=== PATIENT | female | born 2000 | race Caucasian/White ===

== ENCOUNTER 2021-05-02 20:57 | Emergency (ER) | payer OTHER ==
[2021-05-02 21:04] VITALS: TEMP 98.6
[2021-05-02] MEDS ORDERED: LIDOCAINE 1% INJ 10MG/ML (20 ML MDV) SQ ONE (21:27)
--- NOTE | 2021-05-02 21:41 | ED ---
Skin/Abscess/FB HPI - General Chief complaint: Skin/Abscess/Foreign Body Stated complaint: Sore on back Time Seen by Provider: 05/02/21 21:06 Source: patient, family Mode of arrival: ambulatory Limitations: no limitations - History of Present Illness Initial comments: This patient is a 20-year-old woman who presents to be evaluated for which she suspects is a pilonidal cyst. Patient states that she had started to notice a tender area and increasing swelling going back approximate 45 days now. The patient states she had gone to [place] and was seen there and was prescribed Bactrim. She also stated that "they tried to poke it". That was on Thursday but she has not noticed any improvement yet. The patient has not had any systemic symptoms, no fever or chills, palpitations, chest pain or other symptoms. MD complaint: abscess/boil Onset/Timin -: days(s) Tetanus Up to Date: yes Location: buttocks Severity: moderate Quality: sharp Consistency: constant Improves with: none Worsens with: other (Sitting) Context: none Associated symptoms: denies other symptoms - Related Data Home Medications Medication Instructions Recorded Confirmed Ferrous Sulfate [Feosol] 325 mg PO Q48H 05/02/21 05/02/21 Ibuprofen [Motrin Ib] 800 mg PO Q8H PRN 05/02/21 05/02/21 Lessina 28 1 tab PO DAILY 05/02/21 05/02/21 Sulfamethox-Tmp 800-160Mg [Bactrim 1 tab PO Q12HR 05/02/21 05/02/21 DS 800-160 mg] metFORMIN HCL [Glucophage] 1,000 mg PO BID 05/02/21 05/02/21 sitaGLIPtin PHOSPHATE [Januvia] 100 mg PO DAILY 05/02/21 05/02/21 Previous Rx's Medication Instructions Recorded traMADol HCl [Ultram] 50 mg PO Q6H PRN #20 tab 05/02/21 Allergies Allergy/AdvReac Type Severity Reaction Status Date / Time amoxicillin Allergy Rash/Hives Verified 05/02/21 21:04 Fish Containing Products Allergy Verified 05/02/21 21:22 [Fish] Review of Systems ROS Statement: Those systems with pertinent positive or pertinent negative responses have been documented in the HPI. ROS Other: All systems not noted in ROS Statement are negative. Constitutional: Denies: fever, chills Cardiovascular: Denies: chest pain, palpitations Skin: Reports: as per HPI, other (Cyst) Hematological/Lymphatic: Denies: easy bleeding Past Medical History Past Medical History: Diabetes Mellitus Additional Past Medical History / Comment(s): PCOS History of Any Multi-Drug Resistant Organisms: MRSA Date of last positivie culture/infection: abdomen MDRO Source:: 2020 Past Surgical History: Appendectomy, Tonsillectomy Additional Past Surgical History / Comment(s): left ovary removed Past Psychological History: No Psychological Hx Reported Smoking Status: Never smoker Past Alcohol Use History: None Reported Past Drug Use History: None Reported General Exam Limitations: no limitations General appearance: alert, in no apparent distress Neurological exam: Present: alert Skin exam: Present: warm, dry, intact, erythema, other (There is an approximately 6 cm roughly circular area of erythema and warmth with induration overlying what appears to be abscess consistent with pilonidal cyst.). Absent: rash Course Vital Signs 05/02/21 05/02/21 20:59 22:03 Temperature 98.6 F Pulse Rate 94 77 Respiratory 22 18 Rate Blood Pressure 123/82 128/78 O2 Sat by Pulse 98 96 Oximetry - Reevaluation(s) Reevaluation #1: 05/02/21 22:25 I had recommended to have incision and drainage of the abscess, but the patient is declining here. Medical Decision Making - Medical Decision Making I discussed that the usual ER management of this condition and is to have incision and drainage. The patient states that she had a friend who had that done and there was recurrence of required surgical management. She states that she would like to skip the ER drainage and see a surgeon. I did provide surgery follow-up information. The patient requests to have additional pain medicine as the Tylenol she was taking was not helping. I provided small prescription of this. She is to continue the Bactrim. She will follow with the surgeon I discussed return parameters. Disposition Clinical Impression: Pilonidal cyst with abscess Disposition: HOME SELF-CARE Condition: Good Instructions (If sedation given, give patient instructions): Pilonidal Cyst (ED) Prescriptions: traMADol HCl [Ultram] 50 mg PO Q6H PRN #20 tab PRN Reason: Pain Is patient prescribed a controlled substance at d/c from ED?: Yes When asked, does pt state using other controlled substances?: No If prescribed controlled substance>3 days was MAPS reviewed?: Prescribed <3 Days If opioid is for acute pain is fill amount 7 days or less?: Yes If Rx opioid, was Start Talking consent form obtained?: Yes Referrals: Nonstaff,Physician [Primary Care Provider] - 1-2 days Cornell Casey MD [STAFF PHYSICIAN] - 1-2 days
[2021-05-02 22:06] VITALS: BP 128/78; PULSE 77; RESP 18
== END 2021-05-02 22:39 | disposition home or self-care (01) ==
LOC: EC 20:57
DX: L05.01 Pilonidal cyst with abscess (principal); E11.9 Type 2 diabetes mellitus without complications; Z79.84 Long term (current) use of oral hypoglycemic drugs; Z79.1 Long term (current) use of non-steroidal anti-inflammatories (NSAID); Z79.899 Other long term (current) drug therapy
CPT/HCPCS: 99283; J2001

== ENCOUNTER 2021-05-17 07:02 | Day surgery (SDC) | payer OTHER ==
[2021-05-16 08:34] VITALS: BMI 40.1
[~2021-05-17 07:02] MED LIST: ACETAMINOPHEN TAB 500 MG TAB PO PRN; DEXAMETHASONE SOD PHOSPHATE 4 MG/ML 1 ML VIAL IV ONE; HEPARIN SODIUM,PORCINE/PF 5,000 UNIT/0.5 ML SYRINGE SQ PRN; HYDROmorphone 0.5 MG/0.5 ML SYRINGE IVP PRN; MIDAZOLAM 2 MG/2 ML VIAL IV PRN; ONDANSETRON 4 MG/2 ML VIAL IVP ONE; SCOPOLAMINE 1.5MG/72HR PATCH TRANSDERM ONE; ceFAZolin 3 GM in SODIUM CHLORIDE 0.9% 100 ML IVPB PRN; metroNIDAZOLE-NS PMX 500 MG in SALINE 1 100ML.BAG IVPB PRN
[2021-05-17 07:49] LABS: Glucose,Whole Blood 277 mg/dL (75-99)
[2021-05-17] MEDS: LACTATED RINGERS 1,000 ML IV SCH ×2 (07:50→09:24)
[2021-05-17] MEDS ORDERED: INSULIN ASPART (NovoLOG) 100 UNIT/ML VIAL SQ ONE ×2 (07:50→11:43)
[2021-05-17 07:59] VITALS: TEMP 97
[2021-05-17] MEDS ORDERED: .fentaNYL (PF) 50 MCG/ML 2 ML AMP ONE (09:23)
[2021-05-17] MEDS ORDERED: KETOROLAC 15 MG/ML 1 ML VIAL ONE (09:23)
[2021-05-17] MEDS ORDERED: SUCCINYLCHOLINE CHLORIDE VIAL 200 MG/10 ML VIAL IV ONE (09:23)
[2021-05-17] MEDS ORDERED: LIDOCAINE 1% INJ 10MG/ML (20 ML MDV) ONE (09:23)
[2021-05-17] MEDS ORDERED: PROPOFOL 10 MG/ML 20 ML VIAL IV ONE (09:23)
[2021-05-17] MEDS ORDERED: HYDROmorphone (PF) 1 MG/ML ONE (09:23)
[2021-05-17] MEDS ORDERED: MIDAZOLAM 2 MG/2 ML VIAL ONE (09:23)
[2021-05-17] MEDS ORDERED: LACTATED RINGERS 1,000 ML IV ONE (09:45)
[2021-05-17] MEDS ORDERED: BUPIVACAIN-EPI 0.25%-1:200,000 30 ML VIAL SQ ONE (10:07)
--- NOTE | 2021-05-17 10:29 | P.GSHP ---
History of Present Illness H&P Date: 05/17/21 Chief Complaint: Pilonidal cyst This is a 18-year-old female who's had issues with a pilonidal cyst. Patient presents today for excision. Patient is aware of the need for local wound care postoperatively. Past Medical History Past Medical History: Diabetes Mellitus Additional Past Medical History / Comment(s): PCOS. History of Any Multi-Drug Resistant Organisms: MRSA Date of last positivie culture/infection: right arm MDRO Source:: 03/2021 Past Surgical History: Appendectomy, Tonsillectomy Additional Past Surgical History / Comment(s): Left ovary removed. Past Anesthesia/Blood Transfusion Reactions: No Reported Reaction Past Psychological History: No Psychological Hx Reported Smoking Status: Never smoker Past Alcohol Use History: None Reported Past Drug Use History: None Reported - Past Family History Father Family Medical History: No Reported History Medications and Allergies Home Medications Medication Instructions Recorded Confirmed Type Ferrous Sulfate [Feosol] 325 mg PO Q48H 05/02/21 05/16/21 History Sulfamethox-Tmp 800-160Mg [Bactrim 1 tab PO Q12HR 05/02/21 05/16/21 History DS 800-160 mg] metFORMIN HCL [Glucophage] 1,000 mg PO BID 05/02/21 05/16/21 History sitaGLIPtin PHOSPHATE [Januvia] 100 mg PO DAILY 05/02/21 05/16/21 History Allergies Allergy/AdvReac Type Severity Reaction Status Date / Time amoxicillin Allergy Rash/Hives Verified 05/16/21 08:19 Fish Containing Products Allergy Anaphylaxis Verified 05/16/21 08:19 [Fish] Surgical - Exam Vital Signs Temp Pulse Resp BP Pulse Ox 97 F L 80 20 136/72 98 05/17/21 07:57 05/17/21 07:57 05/17/21 07:57 05/17/21 07:57 05/17/21 07:57 - General well developed, well nourished, no distress - Eyes PERRL - ENT normal pinna - Neck no masses - Respiratory normal expansion - Cardiovascular Rhythm: regular - Abdomen Abdomen: soft, non tender - Integumentary Chronic pilonidal cyst Results - Labs Abnormal Lab Results - Last 24 Hours (Table) 05/17/21 Range/Units 07:42 POC Glucose (mg/dL) 277 H (75-99) mg/dL Assessment and Plan Assessment: Chronic pilonidal cyst. We'll perform excision. The patient will have the wound packed postoperative period
--- NOTE | 2021-05-17 10:31 | P.OP ---
Date of Procedure: 05/17/21 Preoperative Diagnosis: Pilonidal cyst Postoperative Diagnosis: Pilonidal cyst Procedure(s) Performed: Excision of pilonidal cyst Anesthesia: GIGI Surgeon: Cornell Casey Estimated Blood Loss (ml): 5 Pathology: other (Pilonidal cyst) Condition: stable Disposition: PACU Description of Procedure: The patient's placed on the operative table in the prone position. She received general endotracheal tube anesthesia. Her buttock was prepped and draped in sterile fashion. Patient upon O cyst located just above her anus. Local skin incision was made. Using electrocautery the prognosis was excised. The Bovie hemostasis. The wound was packed with dry Kerlix. Patient top she will was sent to recovery room in stable condition.
[2021-05-17 10:57] VITALS: RESP 16
[2021-05-17 11:25] LABS: Glucose,Whole Blood 369 mg/dL (75-99)
[2021-05-17 11:45] VITALS: BP 123/72; PULSE 73
[2021-05-17 12:03] LABS: Glucose,Whole Blood 349 mg/dL (75-99)
== END 2021-05-17 12:28 | disposition home health service (06) ==
LOC: OR 07:02
PROVIDERS: ATTEND Surgery
DX: L05.01 Pilonidal cyst with abscess (principal); E11.9 Type 2 diabetes mellitus without complications; E28.2 Polycystic ovarian syndrome; Z88.2 Allergy status to sulfonamides; Z79.899 Other long term (current) drug therapy; Z79.84 Long term (current) use of oral hypoglycemic drugs; E66.9 Obesity, unspecified
CPT/HCPCS: 81025; 88304; 11770; J2250; J0330; J1100; J0690; J2405; J2001; J3010; J1170; J1885; J2704; J1644

== ENCOUNTER 2021-07-04 20:06 | Emergency (ER) | payer OTHER ==
[2021-07-04 20:35] VITALS: TEMP 98.1
[2021-07-04] MEDS ORDERED: LIDOCAINE 1% INJ 10MG/ML (20 ML MDV) SQ ONE (21:12)
[2021-07-04 21:30] LABS: Glucose,Whole Blood 251 mg/dL (75-99)
[2021-07-04] MEDS ORDERED: Acetaminophen-Codeine 300-30mg TAB PO STA (21:31)
--- NOTE | 2021-07-04 21:31 | ED ---
Skin/Abscess/FB HPI - General Chief complaint: Skin/Abscess/Foreign Body Stated complaint: Bump on R hip Time Seen by Provider: 07/04/21 20:49 Source: patient Mode of arrival: ambulatory Limitations: no limitations - History of Present Illness Initial comments: This 20-year-old female with a past medical history diabetes Type 2 and hidradenitis presents to the emergency Department with an abscess on her right side. Patient states on the right side of her mid abdomen/side abdomen 5 days ago she noticed a red klamath the size of 2 quarters with a pinpoint white dot in the center of it. She states 3 days ago it started draining clear/red liquid. Patient states she has had a MRSA infection in her past. Patient states she is here to see if she needs any antibiotics. Patient denies any fever, chills, shortness of breath, abdominal pain, headache, change in vision, nausea, vomiting. - Related Data Home Medications Medication Instructions Recorded Confirmed Ferrous Sulfate [Feosol] 325 mg PO Q48H 05/02/21 05/16/21 metFORMIN HCL [Glucophage] 1,000 mg PO BID 05/02/21 05/16/21 sitaGLIPtin PHOSPHATE [Januvia] 100 mg PO DAILY 05/02/21 05/16/21 Previous Rx's Medication Instructions Recorded Acetaminophen Tab [Tylenol] 650 mg PO Q6H #30 tab 05/17/21 Docusate [Colace] 100 mg PO BID #20 capsule 05/17/21 Ibuprofen [Motrin] 600 mg PO Q6HR PRN #40 tab 05/17/21 oxyCODONE HCL [OxyIR] 5 mg PO Q6H PRN 3 Days #10 tab 05/17/21 Cephalexin [Keflex] 500 mg PO Q6HR #20 cap 07/04/21 Sulfamethox-Tmp 800-160Mg [Bactrim 1 tab PO Q12HR 5 Days #10 tab 07/04/21 DS 800-160 mg] Allergies Allergy/AdvReac Type Severity Reaction Status Date / Time amoxicillin Allergy Rash/Hives Verified 07/04/21 20:35 Fish Containing Products Allergy Anaphylaxis Verified 07/04/21 20:35 [Fish] Review of Systems ROS Statement: Those systems with pertinent positive or pertinent negative responses have been documented in the HPI. ROS Other: All systems not noted in ROS Statement are negative. Past Medical History Past Medical History: Diabetes Mellitus Additional Past Medical History / Comment(s): PCOS. History of Any Multi-Drug Resistant Organisms: MRSA Date of last positivie culture/infection: right arm MDRO Source:: 03/2021 Past Surgical History: Appendectomy, Tonsillectomy Additional Past Surgical History / Comment(s): Left ovary removed. cyst removed,pilonidal cyst Past Anesthesia/Blood Transfusion Reactions: No Reported Reaction Past Psychological History: Anxiety, Depression Smoking Status: Never smoker Past Alcohol Use History: None Reported Past Drug Use History: None Reported - Past Family History Father Family Medical History: No Reported History General Exam Limitations: no limitations General appearance: alert, in no apparent distress Head exam: Present: atraumatic, normocephalic Eye exam: Present: normal appearance, PERRL, EOMI. Absent: scleral icterus, conjunctival injection, periorbital swelling ENT exam: Present: normal exam, mucous membranes moist Neck exam: Present: normal inspection. Absent: tenderness, meningismus, lymphadenopathy Respiratory exam: Present: normal lung sounds bilaterally. Absent: respiratory distress, wheezes, rales, rhonchi, stridor Cardiovascular Exam: Present: regular rate, normal rhythm, normal heart sounds. Absent: systolic murmur, diastolic murmur, rubs, gallop, clicks GI/Abdominal exam: Present: soft, normal bowel sounds. Absent: distended, tenderness, guarding, rebound, rigid Extremities exam: Present: normal inspection, full ROM, normal capillary refill. Absent: tenderness, pedal edema, joint swelling, calf tenderness Back exam: Present: normal inspection Neurological exam: Present: alert, oriented X3, CN II-XII intact Psychiatric exam: Present: normal affect, normal mood Skin exam: Present: warm, dry, other (6cm width x 4cm length erythematous, fluctuant abscess present. Draining fluid out of small center hole. Clear/pus/blood oozing from abscess. She states she is having some pain does not spirits any fever) Course Vital Signs 07/04/21 07/04/21 20:32 22:32 Temperature 98.1 F 98.1 F Pulse Rate 88 92 Respiratory 20 18 Rate Blood Pressure 115/77 124/78 O2 Sat by Pulse 100 100 Oximetry Procedures - Incision & Drainage Consent Obtained: verbal consent Site: abdomen (Right side in line with armpit) Anesthetic Used: lidocaine 1% I&D Cleaning Method: Betadine Scalpel Used: #11 Needle Aspiration Performed?: No Irrigation Performed?: Yes I&D Drainage Obtained: Pus, Blood Packing: Iodoform Culture Obtained?: Yes Patient Tolerated Procedure: well, no complications Medical Decision Making - Medical Decision Making This 20-year-old female presents to the emergency department with an abscess on her right side. Pain medication was given which alleviated her pain. Wound culture obtained and is pending. Around abscess was injected with lidocaine before using scalpel to open middle of abscess. Abscess was drained and packed. Pain medication and antibiotics were given. Patient to follow up with her peters rgeon, Dr. Casey in next 48-72 hours for packing removal and for wound to be reassessed. Strict return precautions given. Patient verbally agreed to plan. Patient sent home in stable condition. Case discussed with my attending, . - Lab Data Lab Results 07/04/21 Range/Units 21:25 POC Glucose (mg/dL) 251 H (75-99) mg/dL POC Glu Business Coordinator ID Claudia Davila Disposition Clinical Impression: Abscess Disposition: HOME SELF-CARE Condition: Stable Instructions (If sedation given, give patient instructions): Abscess (ED), Abscess Incision and Drainage (DC) Additional Instructions: Physical turn to the emergency department with any concerning, new or worsening symptoms. Please follow-up with Carmela next 24-48 hours. Can return here or to Dr. Casey for packing removal in 3 days. Prescriptions: Sulfamethox-Tmp 800-160Mg [Bactrim DS 800-160 mg] 1 tab PO Q12HR 5 Days #10 tab Cephalexin [Keflex] 500 mg PO Q6HR #20 cap Is patient prescribed a controlled substance at d/c from ED?: No Referrals: Nonstaff,Physician [Primary Care Provider] - 1-2 days Cornell Casey MD [STAFF PHYSICIAN] - 1-2 days Time of Disposition: 22:23
[2021-07-04] MEDS ORDERED: HYDROcodone/APAP 5-325MG 1 EACH TAB PO STA (21:33)
[2021-07-04] MEDS ORDERED: SULFAMETHOX-TMP 800-160MG 1 EACH TAB PO STA (22:08)
[2021-07-04] MEDS ORDERED: ACET/COD 300 MG/30 MG STARTER PACK 6 TAB BTL PO STA (22:23)
[2021-07-04 22:33] VITALS: BP 124/78; PULSE 92; RESP 18
== END 2021-07-04 22:33 | disposition home or self-care (01) ==
LOC: EC 20:06
DX: L02.211 Cutaneous abscess of abdominal wall (principal); E11.9 Type 2 diabetes mellitus without complications; F41.9 Anxiety disorder, unspecified; F32.A Depression, unspecified; Z79.84 Long term (current) use of oral hypoglycemic drugs; Z88.0 Allergy status to penicillin; Z90.49 Acquired absence of other specified parts of digestive tract
CPT/HCPCS: 99283; 10060; 36415; 87070; 87205; 87077; 87186; J2001

== ENCOUNTER 2022-06-07 12:44 | Emergency (ER) | payer OTHER ==
[2022-06-07 13:37] VITALS: RESP 18
--- NOTE | 2022-06-07 13:47 | ED ---
URI HPI - General Chief Complaint: Upper Respiratory Infection Stated Complaint: sore throat, congestion, fever Time Seen by Provider: 06/07/22 13:09 Source: patient Mode of arrival: ambulatory Limitations: no limitations - History of Present Illness Initial Comments: Patient is a 21-year-old female presenting to the emergency room from home with complaints of sore throat ongoing for approximately 3 days along with the development of cough and congestion in the last 24 hours. She also reports a fever this morning of 102 which she treated with Tylenol with good response. She reports some generalized malaise and known exposure to influenza. She has not had influenza vaccine but is COVID vaccinated. She denies any known exposure to COVID or RSV. She denies any chest pain, shortness of breath not directly associated with her cough, abdominal pain, nausea, vomiting, altered mental status or chills. She has a past medical history significant for diabetes and PCOS. - Related Data Home Medications Medication Instructions Recorded Confirmed Ferrous Sulfate [Feosol] 325 mg PO Q48H 05/02/21 05/16/21 metFORMIN HCL [Glucophage] 1,000 mg PO BID 05/02/21 05/16/21 sitaGLIPtin PHOSPHATE [Januvia] 100 mg PO DAILY 05/02/21 05/16/21 Previous Rx's Medication Instructions Recorded Acetaminophen Tab [Tylenol] 650 mg PO Q6H #30 tab 05/17/21 Docusate [Colace] 100 mg PO BID #20 capsule 05/17/21 Ibuprofen [Motrin] 600 mg PO Q6HR PRN #40 tab 05/17/21 oxyCODONE HCL [OxyIR] 5 mg PO Q6H PRN 3 Days #10 tab 05/17/21 Cephalexin [Keflex] 500 mg PO Q6HR #20 cap 07/04/21 Sulfamethox-Tmp 800-160Mg [Bactrim 1 tab PO Q12HR 5 Days #10 tab 07/04/21 DS 800-160 mg] Oseltamivir [Tamiflu] 75 mg PO Q12HR 5 Days #10 cap 06/07/22 Allergies Allergy/AdvReac Type Severity Reaction Status Date / Time amoxicillin Allergy Rash/Hives Verified 06/07/22 13:16 Fish Containing Products Allergy Anaphylaxis Verified 06/07/22 13:16 [Fish] Review of Systems ROS Statement: Those systems with pertinent positive or pertinent negative responses have been documented in the HPI. ROS Other: All systems not noted in ROS Statement are negative. Past Medical History Past Medical History: Diabetes Mellitus Additional Past Medical History / Comment(s): PCOS. History of Any Multi-Drug Resistant Organisms: MRSA Date of last positivie culture/infection: 07/04/21 MDRO Source:: Abdomen Past Surgical History: Appendectomy, Tonsillectomy Additional Past Surgical History / Comment(s): Left ovary removed. cyst removed,pilonidal cyst Past Anesthesia/Blood Transfusion Reactions: No Reported Reaction Past Psychological History: Anxiety, Depression Smoking Status: Never smoker Past Alcohol Use History: None Reported Past Drug Use History: None Reported - Past Family History Father Family Medical History: No Reported History General Exam Limitations: no limitations General appearance: alert, in no apparent distress Head exam: Present: atraumatic, normocephalic, normal inspection Eye exam: Present: normal appearance, PERRL, EOMI. Absent: scleral icterus, conjunctival injection, periorbital swelling ENT exam: Present: mucous membranes moist, other (Mild pharyngeal injection without edema. Tonsils absent. No exudate.) Neck exam: Present: normal inspection, lymphadenopathy (Shotty) Respiratory exam: Present: normal lung sounds bilaterally. Absent: respiratory distress, wheezes, rales, rhonchi, stridor Cardiovascular Exam: Present: regular rate, normal rhythm, normal heart sounds. Absent: systolic murmur, diastolic murmur, rubs, gallop, clicks GI/Abdominal exam: Present: soft, normal bowel sounds. Absent: distended, tenderness, guarding, rebound, rigid Rectal exam: Present: deferred Extremities exam: Present: normal inspection, full ROM. Absent: pedal edema, joint swelling Back exam: Present: normal inspection Neurological exam: Present: alert, oriented X3, CN II-XII intact Psychiatric exam: Present: normal affect, normal mood Skin exam: Present: warm, dry, intact, normal color. Absent: rash Course Vital Signs 06/07/22 06/07/22 06/07/22 13:13 13:33 14:25 Temperature Pulse Rate 115 H 117 H Respiratory 20 18 18 Rate Blood Pressure 115/74 128/81 O2 Sat by Pulse 96 98 Oximetry 06/07/22 15:18 Temperature 101.6 F H Pulse Rate 116 H Respiratory 18 Rate Blood Pressure 100/82 O2 Sat by Pulse 97 Oximetry Medical Decision Making - Medical Decision Making 21-year-old female presenting to the emergency room with home with complaints of sore throat cough and congestion with known exposure to influenza. Previous tonsillectomy and history noted. High probability for influenza. Will obtain separate swabs to evaluate for COVID, RSV and influenza. Will also take obtain strep swab in the setting of sore throat prior to cough and congestion. Currently afebrile without distress. No indication for further laboratory studies, diagnostic imaging or medication administration at this time. Strep a swab negative, Covid influenza B and RSV swabs negative. Positive for influenza A. Discussed onset of symptoms and near end of window for Tamiflu efficacy however she would like to proceed with prescription. Will prescribe. Encouraged symptomatic treatment of pain and fevers with Tylenol or Motrin as needed along with good hydration. Will discharge home in stable condition. Advise quarantine and discussed return parameters. Case discussed with Dr. Horvath. - Lab Data Lab Results 06/07/22 06/07/22 Range/Units 13:33 13:33 Influenza Type A (PCR) Detected A (Not Detectd) Influenza Type B (PCR) Not Detected (Not Detectd) RSV (PCR) Not Detected (Not Detectd) SARS-CoV-2 (PCR) Not Detected (Not Detectd) Group A Strep (PCR) NOT DETECTED (Not Detectd) Disposition Clinical Impression: Influenza A Disposition: HOME SELF-CARE Condition: Stable Instructions (If sedation given, give patient instructions): Influenza (ED) Additional Instructions: Please complete course of Tamiflu as prescribed Please quarantine for 5 days after testing positive and restart quarantine if symptoms worsen. Please utilize Tylenol or ibuprofen over the counter as needed for fevers and pain. Please stay well hydrated. Please return to the Emergency Department if symptoms worsen or any other concerns. Prescriptions: Oseltamivir [Tamiflu] 75 mg PO Q12HR 5 Days #10 cap Is patient prescribed a controlled substance at d/c from ED?: No Referrals: None,Stated [Primary Care Provider] - 1-2 days Time of Disposition: 15:03
[2022-06-07 15:23] VITALS: BP 100/82; PULSE 116; TEMP 101.6
== END 2022-06-07 15:25 | disposition home or self-care (01) ==
LOC: EC 12:44
DX: J10.1 Influenza due to other identified influenza virus with other respiratory manifestations (principal); E11.9 Type 2 diabetes mellitus without complications; F41.9 Anxiety disorder, unspecified; F32.A Depression, unspecified; Z88.0 Allergy status to penicillin; Z91.013 Allergy to seafood; Z79.84 Long term (current) use of oral hypoglycemic drugs; Z20.822 Contact with and (suspected) exposure to COVID-19
CPT/HCPCS: 87636; 87651; 99283